=== PATIENT | female | born 1990 | race Caucasian/White ===

== ENCOUNTER 2017-11-03 02:58 | Emergency (ER) | payer BC, OTHER ==
[2017-11-03] MEDS ORDERED: ONDANSETRON 4 MG/2 ML VIAL IVP STA (03:35)
[2017-11-03] MEDS ORDERED: MORPHINE SULFATE 5 MG/ML SYRINGE IV STA (03:35)
[2017-11-03] MEDS ORDERED: SODIUM CHLORIDE 0.9% 1,000 ML IV STA (03:35)
[2017-11-03] MEDS ORDERED: RX INFO: IV CONTRAST WAS GIVEN 1 EACH MISC MISCELLANE PRN (03:35)
[2017-11-03 03:40] LABS: Appearance,Urine Cloudy (Clear); Bilirubin,Urine Negative (Negative); Glucose,Urine (UA) Negative (Negative); Ketones,Urine Negative (Negative); Leukocyte Esterase,Urine Large (Negative); Mucus,Urine Few /hpf; Nitrite,Urine Negative (Negative); Particle Count 6575; Protein,Urine Negative (Negative); RBC,Urine 3 /hpf (0-5); Specific Gravity,Urine 1.017 (1.001-1.035); Squamous Epithelial Cell,Urine 8 /hpf (0-4); UA Billing (MACRO vs. MICRO) MICRO; Urobilinogen,Urine <2.0 mg/dL (<2.0); WBC,Urine 11 /hpf (0-5)
--- NOTE | 2017-11-03 03:46 | ED ---
General Adult HPI - General Chief complaint: Abdominal Pain Stated complaint: Abdominal Pain Time Seen by Provider: 11/03/17 03:35 Source: patient, family, RN notes reviewed, old records reviewed Mode of arrival: ambulatory Limitations: no limitations - History of Present Illness Initial comments: this is a 26-year-old female to the ER for evaluation. Patient presents today for evaluation regarding her bowel pain. Epigastric right sided abdominal pain left-sided abdominal pain generalized abdominal pain. Periumbilical abdominal pain. Patient has no prior history of abdominal pain or surgeries. Patient was here 2 days ago for similar symptoms several with gastritis. Patient was elective kidney stone at the time did not have kidney stone on CT. Patient was under. At the time. Denies any fevers, no nausea no vomiting. No travel history no sick contacts. No similar symptoms with family members - Related Data Home Medications Medication Instructions Recorded Confirmed Cyclobenzaprine [Flexeril] 5 mg PO HS 11/01/17 11/03/17 Previous Rx's Medication Instructions Recorded Ciprofloxacin HCl [Cipro] 500 mg PO Q12HR #10 tablet 11/01/17 Omeprazole 40 mg PO DAILY #14 capsule. 11/01/17 Allergies Allergy/AdvReac Type Severity Reaction Status Date / Time Penicillins Allergy Rash/Hives Verified 11/03/17 03:06 Review of Systems ROS Statement: Those systems with pertinent positive or pertinent negative responses have been documented in the HPI. ROS Other: All systems not noted in ROS Statement are negative. Past Medical History Past Medical History: Asthma History of Any Multi-Drug Resistant Organisms: None Reported Past Surgical History: Section, Cholecystectomy, Orthopedic Surgery Additional Past Surgical History / Comment(s): Left arm surgery Past Anesthesia/Blood Transfusion Reactions: No Reported Reaction Past Psychological History: Anxiety, Depression Smoking Status: Never smoker Past Alcohol Use History: None Reported, Rare Past Drug Use History: None Reported - Past Family History Father Family Medical History: No Reported History General Exam Limitations: no limitations General appearance: alert, in no apparent distress Head exam: Present: atraumatic, normocephalic, normal inspection Eye exam: Present: normal appearance, PERRL, EOMI. Absent: scleral icterus, conjunctival injection, periorbital swelling ENT exam: Present: normal exam, mucous membranes moist Neck exam: Present: normal inspection. Absent: tenderness, meningismus, lymphadenopathy Respiratory exam: Present: normal lung sounds bilaterally. Absent: respiratory distress, wheezes, rales, rhonchi, stridor Cardiovascular Exam: Present: regular rate, normal rhythm, normal heart sounds. Absent: systolic murmur, diastolic murmur, rubs, gallop, clicks GI/Abdominal exam: Present: soft, normal bowel sounds. Absent: distended, tenderness, guarding, rebound, rigid Extremities exam: Present: normal inspection, full ROM, normal capillary refill. Absent: tenderness, pedal edema, joint swelling, calf tenderness Back exam: Present: normal inspection Neurological exam: Present: alert, oriented X3, CN II-XII intact Psychiatric exam: Present: normal affect, normal mood Skin exam: Present: warm, dry, intact, normal color. Absent: rash Course Vital Signs 11/03/17 03:03 Temperature 98.6 F Pulse Rate 91 Respiratory 18 Rate Blood Pressure 136/71 O2 Sat by Pulse 100 Oximetry - Reevaluation(s) Reevaluation #1: 11/03/17 05:07 at this time patient's pain is well-controlled Reevaluation #2: 11/03/17 05:07 patient reassessed with right upper quadrant rate sided abdominal pain. Patient has had gallbladder surgery at this time states her pain is improved no tenderness on exam Medical Decision Making - Medical Decision Making 26 feels abdominal pain, normal lab work normal CT. Normal pelvic exam. Patient can be discharged home - Lab Data Result diagrams: 11/03/17 03:40 11/03/17 03:40 Lab Results 11/03/17 11/03/17 11/03/17 Range/Units 03:23 03:37 03:40 WBC (3.8-10.6) k/uL RBC (3.80-5.40) m/uL Hgb (11.4-16.0) gm/dL Hct (34.0-46.0) % MCV (80.0-100.0) fL MCH (25.0-35.0) pg MCHC (31.0-37.0) g/dL RDW (11.5-15.5) % Plt Count (150-450) k/uL Neutrophils % % Lymphocytes % % Monocytes % % Eosinophils % % Basophils % % Neutrophils # (1.3-7.7) k/uL Lymphocytes # (1.0-4.8) k/uL Monocytes # (0-1.0) k/uL Eosinophils # (0-0.7) k/uL Basophils # (0-0.2) k/uL Hypochromasia Anisocytosis Microcytosis Sodium 140 (137-145) mmol/L Potassium 5.0 (3.5-5.1) mmol/L Chloride 105 (98-107) mmol/L Carbon Dioxide 27 (22-30) mmol/L Anion Gap 8 mmol/L BUN 7 (7-17) mg/dL Creatinine 0.90 (0.52-1.04) mg/dL Est GFR (MDRD) Af Amer >60 (>60 ml/min/1.73 sqM) Est GFR (MDRD) Non-Af >60 (>60 ml/min/1.73 sqM) Glucose 105 H (74-99) mg/dL Plasma Lactic Acid Nicholas (0.7-2.0) mmol/L Calcium 9.7 (8.4-10.2) mg/dL Total Bilirubin 0.2 (0.2-1.3) mg/dL AST 18 (14-36) U/L ALT 30 (9-52) U/L Alkaline Phosphatase 76 (38-126) U/L Total Protein 6.8 (6.3-8.2) g/dL Albumin 3.7 (3.5-5.0) g/dL Amylase 62 (30-110) U/L Lipase 32 (23-300) U/L Urine Color Yellow Urine Appearance Cloudy H (Clear) Urine pH 6.0 (5.0-8.0) Ur Specific [place] 1.017 (1.001-1.035) Urine Protein Negative (Negative) Urine Glucose (UA) Negative (Negative) Urine Ketones Negative (Negative) Urine Blood Moderate H (Negative) Urine Nitrite Negative (Negative) Urine Bilirubin Negative (Negative) Urine Urobilinogen <2.0 (<2.0) mg/dL Ur Leukocyte Esterase Large H (Negative) Urine RBC 3 (0-5) /hpf Urine WBC 11 H (0-5) /hpf Ur Squamous Epith Cells 8 H (0-4) /hpf Urine Mucus Few H (None) /hpf Urine HCG, Qual Not Detected (Not Detectd) Trichomonas Ag (Rapid) (Negative) 11/03/17 11/03/17 11/03/17 Range/Units 03:40 03:40 04:06 WBC 7.9 (3.8-10.6) k/uL RBC 4.49 (3.80-5.40) m/uL Hgb 9.6 L (11.4-16.0) gm/dL Hct 31.6 L (34.0-46.0) % MCV 70.6 L (80.0-100.0) fL MCH 21.3 L (25.0-35.0) pg MCHC 30.2 L (31.0-37.0) g/dL RDW 17.6 H (11.5-15.5) % Plt Count 453 H (150-450) k/uL Neutrophils % 68 % Lymphocytes % 18 % Monocytes % 5 % Eosinophils % 6 % Basophils % 1 % Neutrophils # 5.4 (1.3-7.7) k/uL Lymphocytes # 1.4 (1.0-4.8) k/uL Monocytes # 0.4 (0-1.0) k/uL Eosinophils # 0.4 (0-0.7) k/uL Basophils # 0.1 (0-0.2) k/uL Hypochromasia Marked Anisocytosis Slight Microcytosis Marked Sodium (137-145) mmol/L Potassium (3.5-5.1) mmol/L Chloride (98-107) mmol/L Carbon Dioxide (22-30) mmol/L Anion Gap mmol/L BUN (7-17) mg/dL Creatinine (0.52-1.04) mg/dL Est GFR (MDRD) Af Amer (>60 ml/min/1.73 sqM) Est GFR (MDRD) Non-Af (>60 ml/min/1.73 sqM) Glucose (74-99) mg/dL Plasma Lactic Acid Nicholas 0.8 (0.7-2.0) mmol/L Calcium (8.4-10.2) mg/dL Total Bilirubin (0.2-1.3) mg/dL AST (14-36) U/L ALT (9-52) U/L Alkaline Phosphatase (38-126) U/L Total Protein (6.3-8.2) g/dL Albumin (3.5-5.0) g/dL Amylase (30-110) U/L Lipase (23-300) U/L Urine Color Urine Appearance (Clear) Urine pH (5.0-8.0) Ur Specific [place] (1.001-1.035) Urine Protein (Negative) Urine Glucose (UA) (Negative) Urine Ketones (Negative) Urine Blood (Negative) Urine Nitrite (Negative) Urine Bilirubin (Negative) Urine Urobilinogen (<2.0) mg/dL Ur Leukocyte Esterase (Negative) Urine RBC (0-5) /hpf Urine WBC (0-5) /hpf Ur Squamous Epith Cells (0-4) /hpf Urine Mucus (None) /hpf Urine HCG, Qual (Not Detectd) Trichomonas Ag (Rapid) Negative (Negative) - Radiology Data Radiology results: report reviewed (CT abdomen and pelvis is negative), image reviewed Disposition Clinical Impression: Abdominal pain, UTI (urinary tract infection) Disposition: HOME SELF-CARE Condition: Good Instructions: Abdominal Pain (ED) Referrals: None,Stated [Primary Care Provider] - 1-2 days
[2017-11-03 03:56] LABS: Anisocytosis Slight; Basophils # (A) 0.1 k/uL (0-0.2); Basophils % (A) 1 %; CH 21.1; CHCM 29.9; Eosinophils # (A) 0.4 k/uL (0-0.7); Eosinophils % (A) 6 %; HCT 31.6 % (34.0-46.0); HDW 3.07; HGB 9.6 gm/dL (11.4-16.0); Hypochromasia Marked; Luc # (Auto) 0.14; Luc % (Auto) 2; Lymphocytes # (A) 1.4 k/uL (1.0-4.8); Lymphocytes % (A) 18 %; MCH 21.3 pg (25.0-35.0); MCHC 30.2 g/dL (31.0-37.0); MCV 70.6 fL (80.0-100.0); Mean Platelet Volume 7.1; Microcytosis Marked; Monocytes # (A) 0.4 k/uL (0-1.0); Monocytes % (A) 5 %; Neutrophils # (A) 5.4 k/uL (1.3-7.7); Neutrophils % (A) 68 %; RBC 4.49 m/uL (3.80-5.40); RDW 17.6 % (11.5-15.5); WBC 7.9 k/uL (3.8-10.6); WBC (Perox) 8.21
[2017-11-03 04:05] LABS: ALT 30 U/L (9-52); AST 18 U/L (14-36); Alkaline Phosphatase 76 U/L (38-126); Amylase 62 U/L (30-110); Anion Gap 8 mmol/L; Blood Urea Nitrogen 7 mg/dL (7-17); Calcium 9.7 mg/dL (8.4-10.2); Carbon Dioxide 27 mmol/L (22-30); Chloride 105 mmol/L (98-107); Glucose 105 mg/dL (74-99); Non-African American GFR(MDRD) >60 (>60 ml/min/1.73 sqM); Sodium 140 mmol/L (137-145); Total Bilirubin 0.2 mg/dL (0.2-1.3); Total Protein 6.8 g/dL (6.3-8.2)
--- NOTE | 2017-11-03 05:02 | CT ---
EXAM: CT Abdomen and Pelvis With Intravenous Contrast CLINICAL HISTORY: Reason: abdominal pain TECHNIQUE: Axial computed tomography images of the abdomen and pelvis with intravenous contrast. CTDI is 15 mGy and DLP is 936.5 mGy-cm. This CT exam was performed using one or more of the following dose reduction techniques: automated exposure control, adjustment of the mA and/or kV according to patient size, and/or use of iterative reconstruction technique. Coronal and sagittal reformatted images were created and reviewed. COMPARISON: 11/01/17 FINDINGS: Lower thorax: No acute findings. ABDOMEN: Liver: Unremarkable. No mass. Gallbladder and bile ducts: Cholecystectomy. Mild free fluid. No ductal dilation. Pancreas: Unremarkable. No mass. No ductal dilation. Spleen: Unremarkable. No splenomegaly. Adrenals: Unremarkable. No mass. Kidneys and ureters: Unremarkable. No solid mass. No hydronephrosis. Stomach and bowel: Unremarkable. No obstruction. No mucosal thickening. Appendix: Right lower quadrant appendix demonstrates air within the lumen, and no evidence for significant dilation. PELVIS: Bladder: Slight wall prominence, likely related to under distention. Reproductive: Unremarkable as visualized. ABDOMEN and PELVIS: Intraperitoneal space: See above. Bones/joints: No acute fracture. No dislocation. L5 pars defects. No spondylolisthesis. Soft tissues: Unremarkable. Vasculature: Unremarkable. No abdominal aortic aneurysm. Lymph nodes: Unremarkable. No enlarged lymph nodes. IMPRESSION: 1. Mild free fluid, possibly physiologic. 2. No evidence for acute intra-abdominal process otherwise within the abdomen and pelvis at this time.
[2017-11-03 05:38] VITALS: BP 136/74; PULSE 88; RESP 16; TEMP 97.2
== END 2017-11-03 05:37 | disposition home or self-care (01) ==
LOC: EC 02:58
DX: N39.0 Urinary tract infection, site not specified (principal); Z90.49 Acquired absence of other specified parts of digestive tract; Z98.890 Other specified postprocedural states; Z88.0 Allergy status to penicillin; Z79.899 Other long term (current) drug therapy
CPT/HCPCS: 36415; 80053; 87591 ×2; 87491 ×2; 82150; 83605; 83690; 85025; 81001; 81025; 87808; 87070; 87086; 87205; 74177; 99285; 96374; 96375; 96361 ×2; J2405; Q9967; J2274

== ENCOUNTER 2018-03-01 22:39 | Emergency (ER) | payer BC, OTHER ==
[2018-03-01 23:03] VITALS: RESP 18; TEMP 98.1
[2018-03-02] MEDS ORDERED: KETOROLAC 30 MG/ML 1 ML VIAL IVP STA (00:50)
[2018-03-02 01:19] LABS: Basophils % (A) 0 %; Eosinophils # (A) 0.1 k/uL (0-0.7); Eosinophils % (A) 1 %; HCT 31.7 % (34.0-46.0); HGB 9.3 gm/dL (11.4-16.0); Hypochromasia Marked; Lymphocytes # (A) 1.1 k/uL (1.0-4.8); Lymphocytes % (A) 10 %; MCH 20.7 pg (25.0-35.0); MCHC 29.5 g/dL (31.0-37.0); MCV 70.4 fL (80.0-100.0); Mean Platelet Volume 6.4; Microcytosis Moderate; Monocytes # (A) 0.3 k/uL (0-1.0); Monocytes % (A) 3 %; Neutrophils # (A) 9.2 k/uL (1.3-7.7); Neutrophils % (A) 86 %; Platelet Count 476 k/uL (150-450); RDW 15.4 % (11.5-15.5); WBC 10.8 k/uL (3.8-10.6)
[2018-03-02 01:29] LABS: Albumin 4.4 g/dL (3.5-5.0); Glucose 125 mg/dL (74-99); Total Protein 7.3 g/dL (6.3-8.2)
--- NOTE | 2018-03-02 01:29 | XR ---
EXAMINATION TYPE: XR chest 2V DATE OF EXAM: 03/02/2018 COMPARISON: 05/09/2015 HISTORY: Chest pain TECHNIQUE: Frontal and lateral views of the chest are obtained. FINDINGS: Heart and mediastinum are normal. Lungs are clear. Diaphragm is normal. There are chest le ads. Bony thorax is normal. IMPRESSION: Normal chest. No change.
[2018-03-02 01:30] LABS: ALT 20 U/L (9-52); AST 20 U/L (14-36); Alkaline Phosphatase 84 U/L (38-126); Anion Gap 13 mmol/L; Blood Urea Nitrogen 11 mg/dL (7-17); Carbon Dioxide 22 mmol/L (22-30); Chloride 105 mmol/L (98-107); Potassium 4.9 mmol/L (3.5-5.1); Sodium 140 mmol/L (137-145); Total Bilirubin 0.3 mg/dL (0.2-1.3)
[2018-03-02 02:08] VITALS: BP 125/58; PULSE 79
--- NOTE | 2018-03-02 02:11 | ED ---
Chest Pain HPI - General Chief Complaint: Chest Pain Stated Complaint: chest pain,side pain Time Seen by Provider: 03/02/18 00:35 Source: patient Mode of arrival: ambulatory Limitations: no limitations - History of Present Illness Initial Comments: 27-year-old female patient presents to the emergency department today for complaints of chest pain. Patient reports that she started having pain on the bilateral lateral aspects of her chest a few days ago. States that she did go to [facility] to be evaluated and was diagnosed with pneumonia, states that later called her and told her she did not have pneumonia but told her to continue taking her antibiotic and steroid anyway. Patient states that over the last 2 days the pain has been worsening and has moved into the center of her chest as well. She describes the pain as a sharp stabbing pain. She denies any radiation of the pain to her back. States that she did become short of breath yesterday however that has resolved today. She denies any fevers or chills with this. Denies any cough or congestion. She denies any nasal drainage. Patient denies ever having similar symptoms. She denies any recent trips, use of oral contraceptives, or history of blood clots. Patient denies any recent rash, abdominal pain, nausea, vomiting, diarrhea, constipation, back pain, numbness, tingling, dizziness, weakness, hematuria, dysuria, urinary urgency, urinary frequency, headache, visual changes, or any other complaints. - Related Data Home Medications Medication Instructions Recorded Confirmed Cyclobenzaprine [Flexeril] 5 mg PO HS 11/01/17 11/03/17 Previous Rx's Medication Instructions Recorded Ciprofloxacin HCl [Cipro] 500 mg PO Q12HR #10 tablet 11/01/17 Omeprazole 40 mg PO DAILY #14 capsule. 11/01/17 HYDROcodone/APAP 5-325MG [Vincent 1 tab PO Q6HR PRN #20 tab 11/03/17 5-325] Ondansetron Odt [Zofran ODT] 4 mg PO Q8HR PRN #10 tab 11/03/17 Allergies Allergy/AdvReac Type Severity Reaction Status Date / Time Penicillins Allergy Rash/Hives Verified 11/03/17 03:06 Review of Systems ROS Statement: Those systems with pertinent positive or pertinent negative responses have been documented in the HPI. ROS Other: All systems not noted in ROS Statement are negative. EKG Findings - EKG Comments: EKG Findings:: EKG obtained at 00 59 shows normal sinus rhythm with a sinus arrhythmia. Ventricular rate of 67, AK interval 138, QR oriental orthodox 86, QT 398 , QTC 420. No evidence of ST elevation or depression. Past Medical History Past Medical History: Asthma History of Any Multi-Drug Resistant Organisms: None Reported Past Surgical History: Section, Cholecystectomy, Orthopedic Surgery Additional Past Surgical History / Comment(s): Left arm surgery Past Anesthesia/Blood Transfusion Reactions: No Reported Reaction Past Psychological History: Anxiety, Depression Smoking Status: Never smoker Past Alcohol Use History: None Reported Past Drug Use History: None Reported - Past Family History Father Family Medical History: No Reported History General Exam Limitations: no limitations General appearance: alert, in no apparent distress, other (This is a well- developed, well-nourished adult female patient in no acute distress. Vital signs upon presentation are temperature 98.1F, pulse 97, respirations 18, blood pressure 144/77, pulse ox 99% on room air.) Eye exam: Present: normal appearance, PERRL, EOMI. Absent: scleral icterus, conjunctival injection, periorbital swelling ENT exam: Present: normal exam, normal oropharynx, mucous membranes moist Respiratory exam: Present: normal lung sounds bilaterally. Absent: respiratory distress, wheezes, rales, rhonchi, stridor Cardiovascular Exam: Present: regular rate, normal rhythm, normal heart sounds. Absent: systolic murmur, diastolic murmur, rubs, gallop, clicks GI/Abdominal exam: Present: soft, normal bowel sounds. Absent: distended, tenderness, guarding, rebound, rigid Neurological exam: Present: alert, oriented X3, CN II-XII intact Psychiatric exam: Present: normal affect, normal mood Skin exam: Present: warm, dry, intact, normal color. Absent: rash Course Vital Signs 03/01/18 03/02/18 03/02/18 22:55 01:11 02:07 Temperature 98.1 F Pulse Rate 97 68 79 Respiratory 18 18 18 Rate Blood Pressure 144/77 138/69 125/58 O2 Sat by Pulse 99 97 99 Oximetry Chest Pain MDM - [facility] RADIOLOGY: Two-view x-ray of the chest shows a heart and mediastinum are normal. Lungs are clear. Diaphragm is normal. There are chest leads. Bony thorax is normal. Impression by Dr. Bob shows normal chest with no change. MDM: 27 year-old female patient presents to the emergency department today for evaluation of chest pain. Physical examination is unremarkable. Chest was nontender to palpation. Lungs are clear and equal bilaterally. Chest x-ray showed no acute cardiopulmonary process. Labs reviewed and did reveal white blood cell count of 10.8 likely reactive from steroid use. Hemoglobin 9.3 which is chronic for the patient. D-dimer is 0.29. Troponin was negative. I did review results with the patient. I did discuss that her symptoms could possibly related to pleurisy. She is currently taking antibiotics and steroid, I told her to continue this. Instructed her to take anti-inflammatory pain medication. Return parameters discussed in detail. Follow-up discussed. She verbalizes understanding and agrees with this plan. Disposition Clinical Impression: Chest pain Disposition: HOME SELF-CARE Condition: Good Instructions: Chest Pain (ED), Pleurisy (ED) Additional Instructions: Anti-inflammatory pain medications. Complete your medications as prescribed. Follow-up through primary care physician for recheck in 1-2 days. Return here immediately for any new, worsening, or concerning symptoms. Is patient prescribed a controlled substance at discharge?: No Referrals: None,Stated [Primary Care Provider] - 1-2 days Time of Disposition: 02:11
== END 2018-03-02 02:21 | disposition home or self-care (01) ==
LOC: EC 22:39
DX: R07.9 Chest pain, unspecified (principal); R06.02 Shortness of breath; Z79.899 Other long term (current) drug therapy; Z88.0 Allergy status to penicillin
CPT/HCPCS: 36415; 93005; 85379; 80053; 84484; 85025; 71046; 99285; 96374; J1885

== ENCOUNTER 2022-03-23 08:19 | Inpatient (IN) | payer BC, OTHER ==
[2022-03-23] MEDS: LACTATED RINGERS 1,000 ML IV SCH ×4 (10:08→23:03)
[2022-03-23] MEDS ORDERED: CITRIC ACID-SODIUM CITRATE 15 ML CUP PO ONE (10:30)
[2022-03-23] MEDS ORDERED: GENTAMICIN 380 MG in SODIUM CHLORIDE 0.9% 100 ML IVPB ONE (10:30)
[2022-03-23] MEDS ORDERED: CLINDAMYCIN 900 MG in DEXTROSE 5% IN WATER 50 ML IVPB ONE ×2 (10:30)
[2022-03-23 11:43] LABS: Anisocytosis Marked; Basophils # (A) 0.1 k/uL (0-0.2); Basophils % (A) 1 %; Eosinophils # (A) 0.3 k/uL (0-0.7); Eosinophils % (A) 3 %; HCT 32.9 % (34.0-46.0); HGB 9.5 gm/dL (11.4-16.0); Hypochromasia Marked; Lymphocytes # (A) 1.2 k/uL (1.0-4.8); Lymphocytes % (A) 11 %; MCH 22.5 pg (25.0-35.0); MCHC 28.8 g/dL (31.0-37.0); MCV 78.4 fL (80.0-100.0); Mean Platelet Volume 7.6; Microcytosis Marked; Monocytes # (A) 0.5 k/uL (0-1.0); Monocytes % (A) 5 %; Neutrophils # (A) 8.1 k/uL (1.3-7.7); Neutrophils % (A) 78 %; Platelet Count 333 k/uL (150-450); Poikilocytosis Slight; RDW 24.7 % (11.5-15.5); WBC 10.4 k/uL (3.8-10.6)
[2022-03-23] MEDS ORDERED: ePHEDrine 50 MG/ML 1 ML VIAL ONE (12:00)
[2022-03-23] MEDS ORDERED: OXYTOCIN 30 UNITS/500 ML NS BAG IV ONE (12:00)
[2022-03-23] MEDS ORDERED: MORPHINE SULFATE (PF) 0.3 MG/0.3 ML SYR ONE (12:00)
[2022-03-23] MEDS ORDERED: PHENYLEPHRINE-0.9% NACL SYG 1,000 MCG/10 ML SYRINGE ONE (12:00)
[2022-03-23] MEDS ORDERED: NALBUPHINE 10 MG/ML (1 ML AMP) ONE (12:00)
[2022-03-23] MEDS ORDERED: ONDANSETRON 4 MG/2 ML VIAL ONE (12:00)
[2022-03-23] MEDS ORDERED: diphenhydrAMINE 25 MG CAP PO PRN (13:00)
[2022-03-23] MEDS ORDERED: IBUPROFEN IV 800 MG in SODIUM CHLORIDE 0.9% 250 ML IV PRN (13:00)
[2022-03-23] MEDS ORDERED: METOCLOPRAMIDE 5 MG/ML 2 ML VIAL IVP PRN (13:00)
[2022-03-23] MEDS ORDERED: diphenhydrAMINE 50 MG CAP PO PRN (13:00)
[2022-03-23] MEDS ORDERED: NALOXONE 0.4 MG/ML 1 ML VIAL IV PRN (13:00)
[2022-03-23] MEDS ORDERED: ONDANSETRON 4 MG/2 ML VIAL IVP PRN (13:00)
[2022-03-23] MEDS ORDERED: ZOLPIDEM 5 MG TAB PO PRN (13:00)
[2022-03-23] MEDS ORDERED: OXYTOCIN 30 UNITS/500 ML NS 30 UNIT in SALINE 1 500ML.BAG IV SCH (13:00)
[2022-03-23] MEDS ORDERED: SIMETHICONE 80 MG CHEWABLE PO PRN (13:00)
[2022-03-23] MEDS ORDERED: diphenhydrAMINE 50 MG/ML 1 ML VIAL IVP PRN ×2 (13:00)
--- NOTE | 2022-03-23 13:04 | P.HPOB ---
History of Present Illness H&P Date: 03/23/22 Chief Complaint: IUP at 39 0/7 weeks, history of 1, desires repeat This is a 31-year-old at 39-0/7 weeks, estimated due date of 03/30. Patient presents for repeat section. Patient had a primary secondary to arrest of labor after 24 hours. Patient elected repeat section. Patient has been receiving routine care which has been complicated by an asthma exacerbation. Patient is currently feeling well and is using her inhaler as needed. Patient in addition was diagnosed with iron deficiency anemia and has received iron infusions for this, her hemoglobin today is 9.5. On bloodwork this patient is a blood type of O+, rubella status immune, hepatitis B surface engine negative, HIV negative, RPR is nonreactive, group beta strep cultures negative. Review of Systems Constitutional: Denies chills, Denies fatigue, Denies fever Ears, nose, mouth and throat: Denies headache Cardiovascular: Reports leg edema Respiratory: Denies dyspnea Gastrointestinal: Denies nausea, Denies vomiting Genitourinary: Reports Past Medical History Past Medical History: Asthma History of Any Multi-Drug Resistant Organisms: None Reported Past Surgical History: Section, Cholecystectomy, Orthopedic Surgery Additional Past Surgical History / Comment(s): Left arm surgery Past Anesthesia/Blood Transfusion Reactions: Motion Sickness, Postoperative Nausea & Vomiting (PONV) Past Psychological History: Anxiety, Depression Smoking Status: Never smoker Past Alcohol Use History: None Reported Past Drug Use History: None Reported - Past Family History Father Family Medical History: No Reported History Medications and Allergies Home Medications Medication Instructions Recorded Confirmed Type Aspirin [[place] Aspirin EC] 81 mg PO DAILY 02/15/22 03/02/22 History Pnv No.95/Ferrous Fum/Folic AC 1 tab PO DAILY 02/15/22 03/02/22 History [ Multivitamin Tablet] Sertraline [Zoloft] 50 mg PO DAILY 02/15/22 03/02/22 History Allergies Allergy/AdvReac Type Severity Reaction Status Date / Time Penicillins Allergy Rash/Hives Verified 03/02/22 10:29 Exam Osteopathic Statement: *. No significant issues noted on an osteopathic structural exam other than those noted in the History and Physical/Consult. Vital Signs Temp Pulse Resp BP Pulse Ox 03/23/22 10:10 98.2 F 86 16 138/84 98 Intake and Output 03/22/22 03/23/22 03/23/22 22:59 06:59 14:59 Other: Weight 108.409 kg Targeted physical exam is performed and state in general this a well-nourished well-developed female in no acute distress, breathing is nonlabored, heart has regular rate and rhythm, abdomen is gravid. Cervical exam is deferred. heart tones are noted to be category 1. Results Result Diagrams: 03/23/22 10:20 Abnormal Lab Results - Last 24 Hours (Table) 03/23/22 Range/Units 10:20 Hgb 9.5 L (11.4-16.0) gm/dL Hct 32.9 L (34.0-46.0) % MCV 78.4 L (80.0-100.0) fL MCH 22.5 L (25.0-35.0) pg MCHC 28.8 L (31.0-37.0) g/dL RDW 24.7 H (11.5-15.5) % Neutrophils # 8.1 H (1.3-7.7) k/uL Assessment and Plan (1) Term Current Visit: Yes Status: Acute Code(s): Z34.90 - ENCNTR FOR SUPRVSN OF NORMAL , UNSP, UNSP TRIMESTER SNOMED Code(s): 82803263 (2) Asthma Current Visit: Yes Status: Acute Code(s): J45.909 - UNSPECIFIED ASTHMA, UNCOMPLICATED SNOMED Code(s): 860185786 (3) Chronic anemia Current Visit: No Status: Acute Code(s): D64.9 - ANEMIA, UNSPECIFIED SNOMED Code(s): 564623371 (4) H/O section Current Visit: Yes Status: Acute Code(s): Z98.891 - HISTORY OF UTERINE SCAR FROM PREVIOUS SURGERY SNOMED Code(s): 740051031 Plan: 31-year-old at 39 weeks that presents for elective repeat section. Patient is counseled on and risks including but not limited to infection, bleeding, damage to bladder, bowel, ureteric injury. Patient states understanding and wishes to proceed. Patient was taken back to the operating suite.
--- NOTE | 2022-03-23 13:08 | P.OP ---
Date of Procedure: 03/23/22 Preoperative Diagnosis: IUP at 39-0/7 weeks, history of 1, desires repeat Postoperative Diagnosis: Same Procedure(s) Performed: Repeat section Anesthesia: spinal Surgeon: Blanca Cuello Junior Recruiter #1: Radha Salcido Estimated Blood Loss (ml): 560 IV fluids (ml): 800 Urine output (ml): 150 (Clear yellow) Pathology: none sent Condition: stable Disposition: observation Indications for Procedure: Desires elective repeat Operative Findings: Normal uterus tubes and ovaries were appreciated, viable male infant delivered at 1229, weight of 7 lbs. 14 oz. via vacuum assist, Apgars of 7 and 9 at one and 5 minutes respectively. Description of Procedure: Patient was taken back to the operating suite where spinal anesthesia was found be adequate. She was prepped and draped in normal sterile fashion in the dorsal supine position. A Pfannenstiel skin incision was made the scalpel and carried through to the underlying layer of fascia. The fascia was incised in the midline and the incision was extended laterally. The superior aspect of the fascial incision was then grasped monse clamps, elevated and underlying rectus muscles dissected off sharply. The inferior aspect of the fascial incision was then grasped monse clamps, elevated and underlying rectus muscles dissected off sharply. The rectus muscles were in the midline the peritoneum was identified and entered sharply. This incision was then extended superiorly and inferiorly with good visualization the bladder. Bladder blade was then inserted. Scarring of the bladder to the lower uterine segment was appreciated therefore the vesicouterine peritoneum was identified and the bladder flap was created using sharp and blunt dissection. The bladder blade was then reinserted into the pelvis pushing the bladder further away from the operating field. Hysterotomy incision was made the scalpel amniotomy was performed and clear fluid was obtained. The infant was delivered in a vertex presentation via vacuum assist. Occiput transverse presentation was appreciated. A loose nuchal cord was delivered through. Spontaneous cry was noted at . The umbilical cord was doubly clamped and cut and the infant was handed to awaiting RN. The placenta was delivered manually and the uterus cleared of all clots and debris. The uterus was then exteriorized. The hysterotomy incision was inspected found to be hemostatic and closed 0 Vicryl in a running locked fashion. A second inverting suture was performed. 2 [id number] sutures were used to obtain the uterus was returned to the abdomen and the gutters were cleared of all clots and debris. The hysterotomy incision was inspected and a small amount of oozing was appreciated therefore Surgicel powder was placed along the hysterotomy incision. The rectus muscles were inspected found to be hemostatic and the fascia was closed with 0 Vicryl in a running fashion from one lateral edge the midline and the other lateral edge the midline. The subcutaneous tissue was irrigated and any points of bleeding were made hemostatic with the Bovie. The subcutaneous tissue was closed with 3-0 Vicryl in a running fashion. The skin was closed with 4-0 Vicryl in a subcuticular fashion. Steri-Strips and sterile dressings were applied. Uterus is noted to be firm at the end of skin closure. All counts were correct 2. Patient and infant did tolerate procedure well, and are resting comfortably.
[2022-03-23] MEDS: ACETAMINOPHEN TAB 500 MG TAB PO SCH (17:44)
[2022-03-23] MEDS ORDERED: ACETAMINOPHEN IV (For NPO) 1,000 MG in EMPTY BAG 1 BAG IVPB PRN (18:00)
[2022-03-23] MEDS: IBUPROFEN 600 MG TAB PO SCH (21:49)
[2022-03-23] MEDS: SENNOSIDES-DOCUSATE SODIUM 1 EACH TAB PO SCH (21:59)
[2022-03-24] MEDS: ACETAMINOPHEN TAB 500 MG TAB PO SCH ×2 (00:20→20:32)
[2022-03-24] MEDS: IBUPROFEN 600 MG TAB PO SCH ×3 (04:00→20:33)
[2022-03-24] MEDS: LACTATED RINGERS 1,000 ML IV SCH ×3 (04:01→20:33)
--- NOTE | 2022-03-24 07:00 | P.PN ---
Progress Note - Text Progress Note Date: 03/24/22 Postoperative day 1 status post section under spinal anesthesia, and i ntrathecal morphine given for postoperative analgesia, patient doing well, there is no anesthesia related complications, Patient had no headache, vital signs stable , Assessment and plan= postop day 1 status post , doing well there is no anesthesia related complication.
[2022-03-24 07:27] LABS: Anisocytosis Marked; Basophils # (A) 0.1 k/uL (0-0.2); Basophils % (A) 0 %; Eosinophils # (A) 0.3 k/uL (0-0.7); Eosinophils % (A) 2 %; HCT 32.7 % (34.0-46.0); HGB 9.3 gm/dL (11.4-16.0); Hypochromasia Marked; Lymphocytes # (A) 1.1 k/uL (1.0-4.8); Lymphocytes % (A) 8 %; MCH 22.8 pg (25.0-35.0); MCHC 28.5 g/dL (31.0-37.0); MCV 80.1 fL (80.0-100.0); Mean Platelet Volume 7.3; Microcytosis Moderate; Monocytes # (A) 0.8 k/uL (0-1.0); Monocytes % (A) 6 %; Neutrophils # (A) 11.5 k/uL (1.3-7.7); Neutrophils % (A) 83 %; Platelet Count 339 k/uL (150-450); Poikilocytosis Slight; RBC 4.08 m/uL (3.80-5.40); RDW 24.4 % (11.5-15.5); WBC 13.9 k/uL (3.8-10.6)
[2022-03-24] MEDS: SENNOSIDES-DOCUSATE SODIUM 1 EACH TAB PO SCH ×2 (08:01→20:34)
--- NOTE | 2022-03-24 08:57 | P.PNOBGPC ---
Subjective - Subjective Principal diagnosis: Postop day 1, repeat section Interval history: Patient is doing well. She is ambulatory and voiding without difficulty. She is tolerating a regular diet without nausea or vomiting. States her pain is well-controlled. Her lochia is minimal. She is bottle feeding. Patient reports: Reports appetite normal, Reports voiding normally, Reports pain well controlled, Reports ambulating normally Malcolm: doing well, bottle feeding Objective - Vital Signs Latest vital signs: Vital Signs Temp Pulse Resp BP Pulse Ox 03/24/22 07:51 98.2 F 97 16 135/85 03/24/22 04:00 98.4 F 83 16 127/83 97 03/24/22 00:00 98.5 F 87 16 135/78 96 03/23/22 20:00 98.6 F 97 16 127/87 97 03/23/22 15:01 83 15 149/80 03/23/22 14:30 97.7 F 85 15 141/74 03/23/22 14:00 81 16 140/71 03/23/22 13:46 80 15 129/70 97 03/23/22 13:31 87 15 135/69 98 03/23/22 13:16 90 15 135/69 97 03/23/22 13:01 97.7 F 92 16 126/74 03/23/22 10:10 98.2 F 86 16 138/84 98 Intake and Output 03/23/22 03/24/22 03/24/22 22:59 06:59 14:59 Intake Total 500 Output Total 1600 600 600 Balance -1600 -100 -600 Intake: Oral 500 Output: Urine 1000 600 600 Uretheral (An) 1000 Output, Quantitative 600 Blood Loss Other: # Voids 1 1 - Exam Abdomen: Present: normal appearance, soft Incision: Present: normal, dry, intact Uterus: Present: normal, firm - Labs Labs: Abnormal Lab Results - Last 24 Hours (Table) 03/23/22 03/24/22 Range/Units 10:20 06:46 WBC 13.9 H (3.8-10.6) k/uL Hgb 9.5 L 9.3 L (11.4-16.0) gm/dL Hct 32.9 L 32.7 L (34.0-46.0) % MCV 78.4 L (80.0-100.0) fL MCH 22.5 L 22.8 L (25.0-35.0) pg MCHC 28.8 L 28.5 L (31.0-37.0) g/dL RDW 24.7 H 24.4 H (11.5-15.5) % Neutrophils # 8.1 H 11.5 H (1.3-7.7) k/uL Assessment and Plan (1) Term Current Visit: Yes Status: Acute Code(s): Z34.90 - ENCNTR FOR SUPRVSN OF NORMAL , UNSP, UNSP TRIMESTER SNOMED Code(s): 14408918 (2) Asthma Current Visit: Yes Status: Acute Code(s): J45.909 - UNSPECIFIED ASTHMA, UNCOMPLICATED SNOMED Code(s): 127697994 (3) Chronic anemia Current Visit: No Status: Acute Code(s): D64.9 - ANEMIA, UNSPECIFIED SNOMED Code(s): 905008074 (4) H/O section Current Visit: Yes Status: Acute Code(s): Z98.891 - HISTORY OF UTERINE SCAR FROM PREVIOUS SURGERY SNOMED Code(s): 489729523 (5) S/P section Current Visit: Yes Status: Acute Code(s): Z98.891 - HISTORY OF UTERINE SCAR FROM PREVIOUS SURGERY SNOMED Code(s): 054350589 Plan: 31-year-old G2 now P2 status post repeat section. Patient is doing well postoperatively. We'll encourage increased ambulation today, continue routine postoperative care. Anticipate discharge home tomorrow.
[2022-03-25] MEDS: IBUPROFEN 600 MG TAB PO SCH ×2 (00:44→01:37)
[2022-03-25] MEDS: LACTATED RINGERS 1,000 ML IV SCH (01:36)
[2022-03-25] MEDS: ACETAMINOPHEN TAB 500 MG TAB PO SCH ×2 (01:37→04:25)
[2022-03-25] MEDS: SENNOSIDES-DOCUSATE SODIUM 1 EACH TAB PO SCH (07:29)
[2022-03-25 08:12] VITALS: BP 126/80; PULSE 83; RESP 17; TEMP 98.2
--- NOTE | 2022-03-25 08:45 | P.DS ---
Providers Date of admission: 03/23/22 09:59 Expected date of discharge: 03/25/22 Attending physician: Blanca Cuello Primary care physician: Stated None - Discharge Diagnosis(es) (1) Term Current Visit: Yes Status: Acute (2) Asthma Current Visit: Yes Status: Acute (3) Chronic anemia Current Visit: No Status: Acute (4) H/O section Current Visit: Yes Status: Acute (5) S/P section Current Visit: Yes Status: Acute Hospital Course: 31-year-old 2 now para 2 that presented to labor and delivery for scheduled repeat section. Patient had an extended labor with her first ending and after arrest of labor. Patient had been receiving routine care although late presentation. care was essentially uncomplicated, patient did have a respiratory infection complicated by a prior diagnosis of asthma. In addition patient was known noted to be significantly iron deficiency anemia for which she received multiple iron infusions. Patient underwent repeat section without complication. Patient delivered a liveborn male at 1229, weight of 7 lbs. 14 oz. For full details on the please see the operative report. Patient's postoperative course has been uneventful. On this postoperative day #2 she is ambulating and voiding without difficulty. She is tolerating a regular diet without nausea or vomiting. She states her pain is well- controlled. She is bottle feeding. She would like discharge home. Plan - Discharge Summary New Discharge Prescriptions: No Action Sertraline [Zoloft] 50 mg PO DAILY Aspirin [[place] Aspirin EC] 81 mg PO DAILY Pnv No.95/Ferrous Fum/Folic AC [ Multivitamin Tablet] 1 tab PO DAILY Discharge Medication List Aspirin [[place] Aspirin EC] 81 mg PO DAILY 02/15/22 [History] Pnv No.95/Ferrous Fum/Folic AC [ Multivitamin Tablet] 1 tab PO DAILY 02/15/22 [History] Sertraline [Zoloft] 50 mg PO DAILY 02/15/22 [History] Follow up Appointment(s)/Referral(s): Blanca Cuello DO [Doctor of Osteopathic Medicine] - 2 Weeks Patient Instructions/Handouts: (DC), (GEN) Discharge Disposition: HOME SELF-CARE
== END 2022-03-25 11:00 | disposition home or self-care (01) | DRG 787 ==
LOC: 4FBP 09:59
PROVIDERS: ADMIT Obstetrics & Gynecology Obstetrics; ATTEND Obstetrics & Gynecology Obstetrics
PROC: 4A0HXCZ Measurement of Products of Conception, Cardiac Rate, External Approach (ICD-10-PCS; 2022-03-23)
PROC: 10D00Z1 Extraction of Products of Conception, Low, Open Approach (ICD-10-PCS; principal; 2022-03-23 12:00)
DX: O34.211 Maternal care for low transverse scar from previous cesarean delivery (principal); J45.901 Unspecified asthma with (acute) exacerbation; O62.0 Primary inadequate contractions; F32.A Depression, unspecified; Z88.0 Allergy status to penicillin; D50.9 Iron deficiency anemia, unspecified; F41.9 Anxiety disorder, unspecified; O69.81X0 Labor and delivery complicated by cord around neck, without compression, not applicable or unspecified; O99.344 Other mental disorders complicating childbirth; O99.02 Anemia complicating childbirth; O99.52 Diseases of the respiratory system complicating childbirth; Z37.0 Single live birth; Z3A.39 39 weeks gestation of pregnancy; Z79.82 Long term (current) use of aspirin; Z79.899 Other long term (current) drug therapy
CPT/HCPCS: 85025; 86850; 86900; 86901

== ENCOUNTER → 2023-12-16 | Outpatient (CLI) | payer BC, OTHER ==
--- NOTE | 2023-12-16 10:53 | CT ---
EXAMINATION TYPE: CT abdomen pelvis w con DATE OF EXAM: 12/16/2023 COMPARISON: 11/03/2017 HISTORY: 33-year-old female D50.9, unspecified iron deficiency anemia TECHNIQUE: Contiguous axial scanning of the abdomen and pelvis following administration of 100 ml Iso jimy 300 IV contrast. Delayed images through the kidneys and coronal/sagittal reconstructions perform ed. CT DLP: 1302 mGycm Automated exposure control for dose reduction was used. FINDINGS: LUNG BASES: No significant abnormality is appreciated. LIVER/GB: Cholecystectomy clips. Otherwise, no significant abnormality is appreciated. PANCREAS: No significant abnormality is seen. SPLEEN: No significant abnormality is seen. ADRENALS: No significant abnormality is seen. KIDNEYS: Tiny 6 mm renal cortical cyst right kidney. No nephrolithiasis or hydronephrosis. LYMPH NODES: Numerous scattered prominent but nonenlarged mesenteric lymph nodes measuring up to 6 mm remain unchanged. BOWEL: Moderate stool in the right side of the colon and also within the sigmoid colon and rectum. Th ere may be segmental mild circumferential wall thickening along portions of the transverse colon, for example, axial image 30 and 31. These may be due to incomplete distention. Normal appendix. No dilat ed small bowel, free fluid, or free air. PELVIS: Bladder urine distended. Uterus anteverted. Both ovaries are visualized. Thick-walled periphe rally enhancing cystic structure right ovary measuring 1.8 cm, probably a corpus luteum or a recently ruptured follicle. No abnormal fluid collection in the pelvis or pelvic lymphadenopathy. Tiny pelvic phleboliths. OTHER: No significant abnormality is seen. BONES: Bilateral L5 pars defects. Exaggerated lower lumbar lordosis. IMPRESSION: 1. MODERATE STOOL RIGHT SIDE OF THE COLON AND ALSO WITHIN THE SIGMOID COLON AND RECTUM. 2. EITHER MILD CIRCUMFERENTIAL WALL THICKENING ALONG SEGMENTS OF THE TRANSVERSE COLON VERSUS NONDISTE NTION. CORRELATE TO EXCLUDE A NONSPECIFIC MILD COLITIS. 3. SUSPECT EITHER A RECENTLY RUPTURED FOLLICLE OR CORPUS LUTEUM OF THE RIGHT OVARY MEASURING 1.7 CM. CONSIDER PELVIC ULTRASOUND FOLLOW-UP IN 6-8 WEEKS TO REASSESS. 4. INCIDENTAL: BILATERAL L5 PARS DEFECTS.
== END | disposition home or self-care (01) ==
LOC: RADCTMAIN 08:43
PROVIDERS: ATTEND Internal Medicine Hematology & Oncology
DX: K63.89 Other specified diseases of intestine (principal); K56.41 Fecal impaction; D50.9 Iron deficiency anemia, unspecified; J45.909 Unspecified asthma, uncomplicated; R10.9 Unspecified abdominal pain; Z71.3 Dietary counseling and surveillance
CPT/HCPCS: 74177; Q9967

== ENCOUNTER 2023-12-30 12:43 | Day surgery (SDC) | payer BC, OTHER ==
[2023-12-27 12:35] VITALS: BMI 38.9
[~2023-12-30 12:43] MED LIST: LIDOCAINE 1% (10MG/ML) FOR IV START INTRADERMA PRN; ONDANSETRON 4 MG/2 ML VIAL IVP PRN
[2023-12-30] MEDS: LACTATED RINGERS 1,000 ML IV SCH (13:35)
[2023-12-30 14:04] VITALS: TEMP 97.7
[2023-12-30] MEDS ORDERED: PROPOFOL 10 MG/ML 20 ML VIAL IV ONE (15:08)
[2023-12-30] MEDS ORDERED: LIDOCAINE 1% INJ 10MG/ML (20 ML MDV) ONE (15:08)
--- NOTE | 2023-12-30 15:24 | P.PCN ---
Date of Procedure: 12/30/23 Procedure(s) Performed: BRIEF HISTORY: Patient is a 33-year-old pleasant female scheduled for an elective colonoscopy as a part of evaluation of Iron deficiency anemia. PROCEDURE PERFORMED: Colonoscopy. PREOPERATIVE DIAGNOSIS: Iron deficiency anemia. IV sedation per Anesthesia. PROCEDURE: After informed consent was obtained, the patient, was brought into the endoscopy unit. IV sedation was administered by Anesthesia under continuous monitoring. Digital rectal examination was normal. Initially the Olympus CF-160 flexible video colonoscope was then inserted in the rectum, gradually advanced into the cecum without any difficulty. Careful examination was performed as the scope was gradually being withdrawn. Ileocecal valve and the appendiceal orifice were visualized and appeared normal. Prep was excellent. Mucosa of the cecum, ascending colon, transverse colon, descending colon, sigmoid colon, and rectum appeared normal. Retroflexion was performed in the rectum and no lesions were seen. The patient tolerated the procedure well. IMPRESSION: Normal-appearing colon from rectum to cecum no evidence of colorectal neoplasia . RECOMMENDATIONS: Findings of this examination were discussed with the patient as well as a family. She was advised to have a repeat screening colonoscopy at age 46..
[2023-12-30 15:38] VITALS: RESP 16
[2023-12-30 16:07] VITALS: BP 109/75; PULSE 82
== END 2023-12-30 16:06 | disposition home or self-care (01) ==
LOC: ORWHC2ENDO 12:43
PROVIDERS: ATTEND Internal Medicine Gastroenterology
DX: D50.9 Iron deficiency anemia, unspecified (principal); J45.909 Unspecified asthma, uncomplicated; F41.9 Anxiety disorder, unspecified; F32.A Depression, unspecified; Z88.0 Allergy status to penicillin; Z79.51 Long term (current) use of inhaled steroids; Z79.899 Other long term (current) drug therapy
CPT/HCPCS: 45378